=== PATIENT | female | born 1990 | race Caucasian/White ===

== ENCOUNTER 2024-05-05 08:03 | Emergency (ER) | payer SELFPAY ==
[~2024-05-05] VITALS: Ht 167.6 cm; Wt 72.0 kg
[2024-05-05 08:09] VITALS: O2SAT 97
[2024-05-05] MEDS: DEXAMETHASONE 4MG TABLET PO ONE (09:47)
[2024-05-05] MEDS: IBUPROFEN 400MG TABLET PO ONE (09:47)
[2024-05-05] MEDS ORDERED: IBUP-2028 MT (11:25)
[2024-05-05] MEDS ORDERED: TOPUD PO (11:25)
[2024-05-05 11:37] VITALS: BP 116/69; PULSE 85; RESP 18; TEMP 98.1
== END 2024-05-05 11:38 | disposition home or self-care (01) ==
LOC: ER 08:03
DX: U07.1 COVID-19 (principal)
CPT/HCPCS: 99283; 87426; 81025; 87430; 87070; 87804 ×2; J8540